=== PATIENT | male | born 1935 | race Asian ===

== ENCOUNTER → 2017-12-22 | Outpatient (CLI) | payer MEDICARE ==
--- NOTE | 2017-12-22 15:39 | Diagnostic Imaging Report ---
EXAMINATION: PA and lateral views of the chest, right rib series. COMPARISON: None CLINICAL HISTORY: Fall, right rib pain DISCUSSION: The lungs are well-inflated. No focal airspace consolidation, pleural effusion, or pneumothorax. Tortuous thoracic aorta with otherwise normal cardiomediastinal contour. 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 There is an acute, mildly displaced fracture of the posterior lateral margin of the right 11th rib. Remaining ribs are intact. IMPRESSION: Acute minimally displaced fracture of the posterior-lateral aspect of the right 11th rib. No pneumothorax. No acute cardiopulmonary abnormalities. Signed by: Dr. Bernabe Ennis M.D. on 12/22/2017 3:36 PM
== END ==
LOC: EDBD 14:39 → RAD 14:39
DX: S20.20XA Contusion of thorax, unspecified, initial encounter (principal); W18.39XA Other fall on same level, initial encounter
CPT/HCPCS: 71046; 71101

== ENCOUNTER → 2023-07-02 | Day surgery (SDC) | payer MEDICARE ==
[2023-06-30 09:52] LABS: BASOPHILS % 0.4 % (0.0-1.0); EOSINOPHILS # (AUTO) 0.3 (0.0-0.4); EOSINOPHILS % 3.2 % (0.0-6.0); HEMOGLOBIN 10.4 g/dL (14.0-18.0); LYMPHOCYTES # (AUTO) 2.8 (1.0-3.2); LYMPHOCYTES % 28.7 % (18.0-39.1); MEAN CORPUSCULAR HEMOGLOBIN 29.7 pg (28-32); MEAN CORPUSCULAR HGB CONC 32.5 g/dL (31-35); MEAN CORPUSCULAR VOLUME 91.4 fL (81-99); MONOCYTES # (AUTO) 0.8 (0.2-0.8); MONOCYTES % 8.3 % (4.4-11.3); NEUTROPHILS # (AUTO) 5.8 (2.1-6.9); NEUTROPHILS % 59.3 % (38.7-80.0); PLATELET COUNT 187 x10e3/uL (140-360); RED CELL DISTRIBUTION WIDTH 13.4 % (11.7-14.4); WHITE BLOOD COUNT 9.79 x10e3/uL (4.8-10.8)
[2023-06-30 10:25] LABS: ANION GAP 17.1 mmol/L (8-16); CALCIUM 9.1 mg/dL (8.4-10.2); CREATININE, SERUM 2.39 mg/dL (0.72-1.25); POTASSIUM 5.1 mmol/L (3.5-5.1)
[~2023-07-02] MED LIST: ASPIRIN81 MG PO; ATORVASTATIN CA80 MG PO; BRILINTA90 MG; DEXAMETHASONE SOD PHOS INJ 4 MG/ML SDV ONE; DEXTROSE 5% 250 ML BAG IV ONE; DEXTROSE 5% 250ML 250 ML IV ONE; FARXIGA10 MG; FENTANYL CITRATE/PF 100MCG/2 ML INJ ONE; FUROSEMIDE40 MG PO; GLYCOPYRROLATE INJ 0.2 MG/ML VIAL ONE; LACTATED RINGER'S 1,000 ML BAG ONE; LACTATED RINGER'S 1,000 ML ONE; LIDOCAINE HCL 2% LOCAL INJ 5 ML SDV VIAL INJ ONE; LISINOPRIL10 MG PO; LISPRO; METOPROLOL ER; NEOMYCIN/POLYMYXIN/BACITRACIN 15 GM TUBE ONE; NEOSTIGMINE 1 MG/ML 10ML VIAL ONE; NEURONTIN300 MG PO; ONDANSETRON HCL INJ 2MG/ML 2ML 2 MG/ML VIAL ONE; PROPOFOL IV EMULSION 10 MG/ML 20 ML VIAL ONE; PROTONIX20 MG PO; SEVOFLURANE INHAL SOLN 250 ML PEN BTL ONE; Sodium Chloride 0.9% 50ML Bag ONE; ULORIC40 MG PO; ZETIA10 MG PO
[2023-07-02] MEDS: LACTATED RINGER'S 1,000 ML BAG IV ONE (06:00)
[2023-07-02] MEDS: DEXTROSE 5% 250 ML BAG IV ONE (06:00)
[2023-07-02 07:34] VITALS: TEMP 98
[2023-07-02 08:35] VITALS: BP 148/76; PULSE 70; RESP 16; O2SAT 99
== END | disposition home or self-care (01) ==
LOC: OR 05:59
PROVIDERS: ATTEND Urology
DX: N47.1 Phimosis (principal); N39.0 Urinary tract infection, site not specified; N40.1 Benign prostatic hyperplasia with lower urinary tract symptoms; R35.1 Nocturia; N50.0 Atrophy of testis; I86.1 Scrotal varices; R81 Glycosuria; N28.9 Disorder of kidney and ureter, unspecified; I10 Essential (primary) hypertension; I25.2 Old myocardial infarction; E78.5 Hyperlipidemia, unspecified; E11.9 Type 2 diabetes mellitus without complications; K21.9 Gastro-esophageal reflux disease without esophagitis; Z01.810 Encounter for preprocedural cardiovascular examination; Z01.812 Encounter for preprocedural laboratory examination; Z01.818 Encounter for other preprocedural examination; Z79.82 Long term (current) use of aspirin; Z79.84 Long term (current) use of oral hypoglycemic drugs; Z79.899 Other long term (current) drug therapy; Z95.5 Presence of coronary angioplasty implant and graft; Z95.0 Presence of cardiac pacemaker
CPT/HCPCS: 36415 ×2; 54001; 71046; 80048; 82948; 85025; 93005; J0690; J1100; J2001; J2405; J2704; J2710; J3010; J7070; J7121